=== PATIENT | female | born 1990 | race Caucasian/White ===

== ENCOUNTER 2020-10-01 08:00 | Outpatient (CLI) | payer OTHER ==
--- NOTE | 2020-10-01 20:58 | XRAY Report ---
PROCEDURE: Chest 2 View X-Ray INDICATIONS: SHORTNESS OF BREATH TECHNIQUE: 2 view(s) of the chest. COMPARISON: None. FINDINGS: Surgical changes and devices: None. Lungs and pleura: No pleural effusions or pneumothorax. Lungs are clear. Mediastinum: Mediastinal contours are normal. Heart size is normal. Bones and chest wall: No suspicious bony abnormalities. Soft tissues appear unremarkable. IMPRESSION: No acute cardiopulmonary disease process. Reviewed by: Piedad Moody MD, PhD on 10/01/2020 8:57 PM PDT Approved by: Piedad Moody MD, PhD on 10/01/2020 8:57 PM PDT Station ID: [id number]
== END 2020-10-01 23:59 | disposition home or self-care (01) ==
LOC: DI.S 08:00
PROVIDERS: ATTEND Physician Assistant Medical
DX: R06.02 Shortness of breath (principal); R07.89 Other chest pain

== ENCOUNTER 2022-07-25 12:21 | Outpatient (CLI) | payer OTHER ==
[2022-07-25 13:05] LABS: BASOPHILS % (AUTO) 0.4 %; EOSINOPHILS # (AUTO) 0.1 10^3/uL (0.0-0.7); EOSINOPHILS % (AUTO) 0.8 %; HGB - HEMOGLOBIN 13.4 g/dL (12.0-16.0); LYMPHOCYTES # (AUTO) 3.1 10^3/uL (1.5-3.5); LYMPHOCYTES % (AUTO) 30.5 %; MEAN CORPUSCULAR HEMOGLOBIN 29.5 pg (27.0-31.0); MEAN CORPUSCULAR HGB CONC 32.7 g/dL (32.0-36.0); MEAN CORPUSCULAR VOLUME 90.1 fL (81.0-99.0); MEAN PLATELET VOLUME 9.3 fL (7.9-10.8); MONOCYTES # (AUTO) 0.5 10^3/uL (0.0-1.0); MONOCYTES % (AUTO) 5.2 %; NEUTROPHILS # (AUTO) 6.3 10^3/uL (1.5-6.6); NEUTROPHILS % (AUTO) 62.8 %; PLT - PLATELET COUNT 315 10^3/uL (130-450); RED BLOOD COUNT 4.55 10^6/uL (4.20-5.40); RED CELL DISTRIBUTION WIDTH 12.1 % (12.0-15.0); WHITE BLOOD COUNT 10.1 x10^3/uL (4.8-10.8)
[2022-07-25 13:35] LABS: ALBUMIN 4.2 g/dL (3.2-5.5); ALBUMIN/GLOBULIN RATIO 1.3 (1.0-2.2); ALKALINE PHOSPHATASE 57 IU/L (42-121); ALT ALANINE AMINOTRANSFERASE 16 IU/L (10-60); AST ASPARTATE AMINOTRANSFERASE 15 IU/L (10-42); BILIRUBIN,TOTAL 0.9 mg/dL (0.2-1.0); BUN - BLOOD UREA NITROGEN 12 mg/dL (6-20); CARBON DIOXIDE - CO2 19 mmol/L (21-32); CHLORIDE 109 mmol/L (101-111); CHOL/HDL RATIO 3.1 (<4.4); CHOLESTEROL 181 mg/dL; CREATININE 0.5 mg/dL (0.4-1.0); CRP - C-REACTIVE PROTEIN 1.7 mg/dL (0-1.0); GFR - MDRD 145 (>89); GLUCOSE 86 mg/dL (70-100); HDL CHOLESTEROL 59 mg/dL; LDL CHOLESTEROL,CALCULATED 103 mg/dL; LDL/HDL RATIO 1.7 (<4.4); POTASSIUM 3.5 mmol/L (3.5-5.0); SODIUM 136 mmol/L (135-145); TOTAL PROTEIN 7.5 g/dL (6.7-8.2); TRIGLYCERIDES 96 mg/dL; VLDL CHOLESTEROL 19 mg/dL
[2022-07-25 14:02] LABS: RHEUMATOID FACTOR NEGATIVE (Negative)
[2022-07-25 14:06] LABS: THYROID STIMULATING HORMONE 2.27 uIU/mL (0.34-5.60)
--- NOTE | 2022-07-25 15:33 | XRAY Report ---
PROCEDURE: Knee 3 View LT INDICATIONS: ARTHRALGIA, KNEE JOINT PAIN TECHNIQUE: 3 views of the left knee were acquired. COMPARISON: None. FINDINGS: Bones: No acute fractures or dislocations. No suspicious bony lesions. Soft tissues: No joint effusion. No suspicious soft tissue calcifications. IMPRESSION: No acute osseous abnormality. If there is clinical concern or persistent symptoms, additional imaging such as repeat radiographs or advanced imaging (e.g. CT, MRI) may be helpful for further evaluation. Reviewed by: Branden Coyle MD on 07/25/2022 3:32 PM PDT Approved by: Branden Coyle MD on 07/25/2022 3:32 PM PDT Station ID: [id number]
--- NOTE | 2022-07-25 15:33 | XRAY Report ---
PROCEDURE: Hand 2 View BILAT INDICATIONS: ARTHRALGIA,KNEE JOINT PAIN TECHNIQUE: 2 views of the hands acquired. COMPARISON: None. FINDINGS: Bones: No acute fractures or dislocations. No suspicious bony lesions. No significant arthritic luis nges. No focal osseous erosion. Soft tissues: No suspicious soft tissue calcifications. IMPRESSION: No acute osseous abnormality. No radiographic signs of an inflammatory arthritis. Reviewed by: Branden Coyle MD on 07/25/2022 3:31 PM PDT Approved by: Branden Coyle MD on 07/25/2022 3:31 PM PDT Station ID: [id number]
--- NOTE | 2022-07-25 15:34 | XRAY Report ---
PROCEDURE: Foot 2 View BILAT INDICATIONS: ARTHRALGIA, KNEE JOINT PAIN TECHNIQUE: 2 views of the right and left foot were acquired. COMPARISON: None. FINDINGS: Bones: No acute fractures or dislocations. No suspicious bony lesions. No focal osseous erosion. Soft tissues: No suspicious soft tissue calcification. No focal soft tissue swelling. IMPRESSION: No acute osseous abnormality. No radiographic signs of an inflammatory arthritis Reviewed by: Branden Coyle MD on 07/25/2022 3:33 PM PDT Approved by: Branden Coyle MD on 07/25/2022 3:33 PM PDT Station ID: [id number]
[2022-07-26 08:10] LABS: COMPLEMENT C3 129 mg/dL (82-167); HIV SCREEN 4TH GENERATION Non Reactive (Non Reactive); IMMUNOGLOBULIN A (IGA) 317 mg/dL (87-352); IMMUNOGLOBULIN G (IGG) 946 mg/dL (586-1602); IMMUNOGLOBULIN M (IGM) 103 mg/dL (26-217)
[2022-07-28 13:10] LABS: ANTINUCLEAR ANTIBODIES IFA Negative (.)
[2022-07-28 17:08] LABS: A/G RATIO 1.2 (0.7-1.7); ALBUMIN 4.1 g/dL (2.9-4.4); ALPHA-1-GLOBULIN 0.3 g/dL (0.0-0.4); ALPHA-2-GLOBULIN 0.8 g/dL (0.4-1.0); BETA GLOBULIN 1.3 g/dL (0.7-1.3); GLOBULIN, TOTAL 3.4 g/dL (2.2-3.9); PROTEIN TOTAL 7.5 g/dL (6.0-8.5)
[2022-07-29 18:07] LABS: CYCLIC CITRULLINATED PEP IGG/A <1 units (0-19)
== END 2022-07-25 12:22 | disposition home or self-care (01) ==
LOC: DI 12:21
PROVIDERS: ATTEND Internal Medicine
DX: M25.562 Pain in left knee (principal); M25.561 Pain in right knee; M25.541 Pain in joints of right hand; M25.542 Pain in joints of left hand; M79.671 Pain in right foot; M79.672 Pain in left foot; R21 Rash and other nonspecific skin eruption; Z13.220 Encounter for screening for lipoid disorders; D84.9 Immunodeficiency, unspecified; R53.83 Other fatigue
CPT/HCPCS: 36415; 80053; 80061; 82784; 83721; 84155; 84165; 84443; 85025; 85651; 86038; 86140; 86160; 86200; 86430; 87389

== ENCOUNTER 2022-08-15 08:00 | Outpatient (CLI) | payer OTHER ==
[2022-08-15 22:02] LABS: BACTERIAL VAGINOSIS DNA POSITIVE (NEGATIVE); CANDIDA KRUSEI DNA NEGATIVE (NEGATIVE); TRICHOMONAS VAGINALIS DNA NEGATIVE (NEGATIVE)
[2022-08-15 22:03] LABS: CANDIDA GLABRATA DNA NEGATIVE (NEGATIVE); CANDIDA GROUP DNA POSITIVE (NEGATIVE)
[2022-08-16 00:28] LABS: CHLAMYDIA TRACHOMATIS DNA NEGATIVE (NEGATIVE); NEISSERIA GONORRHOEAE DNA NEGATIVE (NEGATIVE)
== END 2022-08-15 23:59 | disposition home or self-care (01) ==
LOC: LAB.WC 08:00
PROVIDERS: ATTEND Nurse Practitioner
DX: N89.8 Other specified noninflammatory disorders of vagina (principal)
CPT/HCPCS: 81514; 87491; 87591; 87661